=== PATIENT | female | born 1955 | race Caucasian/White ===

== ENCOUNTER 2024-05-18 21:59 | Emergency (ER) | payer OTHER ==
[~2024-05-18] VITALS: Ht 167.6 cm; Wt 69.0 kg
[2024-05-18 22:05] VITALS: O2SAT 98
[2024-05-18] MEDS: SODIUM CHLORIDE 0.9% 1,000 ML IV ONE (22:52)
[2024-05-18 23:02] LABS: BASOPHILS % 0.6 % (0.0-2.0); EOSINOPHILS % 3.6 % (0.0-5.0); HEMATOCRIT. 39.5 % (36.0-48.0); HEMOGLOBIN. 13.1 g/dL (12.0-16.0); LYMPHOCYTES % 24.1 % (20.0-50.0); MEAN CORPUSCULAR HEMOGLOBIN 28.8 pg (28.0-32.0); MEAN CORPUSCULAR HGB CONC 33.2 g/dL (31.0-37.0); MEAN PLATELET VOLUME 8.5 fl (7.4-10.4); MONOCYTES % 6.7 % (2.0-8.0); PLATELET 244 x1000/uL (130-400); RED BLOOD CELL COUNT 4.54 mill/uL (4.2-5.4); RED CELL DISTRIBUTION WIDTH 13.7 % (11.6-14.6); WHITE BLOOD COUNT 6.4 x1000/uL (4.5-11.0)
[2024-05-18 23:09] LABS: POTASSIUM 3.4 mEq/L (3.5-5.1)
[2024-05-18 23:11] LABS: INR 0.9; PARTIAL THROMBOPLASTIN TIME 23.8 sec (23.4-31.0); PROTHROMBIN TIME 10.3 sec (9.6-11.0)
[2024-05-18 23:15] LABS: CREATININE 1.1 mg/dL (0.6-1.0)
[2024-05-19 01:48] VITALS: BP 160/91; PULSE 61; RESP 18; TEMP 37.00296; O2SAT 96
== END 2024-05-19 01:50 | disposition short-term general hospital (02) ==
LOC: ER 21:59 → EDBEDREQTM 05-19 01:23 → EDBEDREQ 05-19 01:23 → EDBEDREQDT 05-19 01:23 → ER 05-19 01:50
DX: K92.2 Gastrointestinal hemorrhage, unspecified (principal); Z86.73 Personal history of transient ischemic attack (TIA), and cerebral infarction without residual deficits
CPT/HCPCS: 99285; 96360; 80048; 83690; 85025; 85610; 85730; 86850; 86900; 86901; 36415; J7030